=== PATIENT | male | born 1960 | race Caucasian/White ===

== ENCOUNTER 2022-07-25 10:05 | Emergency (ER) | payer SELFPAY ==
[2022-07-25 10:07] VITALS: BP 199/94; PULSE 66; RESP 18; TEMP 36.6; O2SAT 99
--- NOTE | 2022-07-25 10:35 | ED.GENADULT ---
HPI - General Adult General Chief complaint: Unspecified Stated complaint: Employer requesting drug screen Time Seen by Provider: 07/25/22 10:09 History of Present Illness HPI narrative: Patient is a 62-year-old male who presents to the ER with his employer for a drug test. They have paperwork for a DOT drug screen. Apparently there was reasonable suspicion for the patient to have a test performed and so they brought him here because they did not feel there is another open facility. Patient is alert and oriented x3. He has no complaints. He reports he is feeling agitated due to the situation. Related Data Allergies Allergy/AdvReac Type Severity Reaction Status Date / Time Penicillins Allergy Mild Rash Verified 07/25/22 10:05 Review of Systems Review of Systems: All systems reviewed & are unremarkable except as noted in HPI and below Constitutional: Constitutional: Denies chills and Denies fever(s) Cardiovascular: Cardiovascular: Denies chest pain and Denies radiating jaw, neck or arm pain Neurologic: Denies confusion, Denies headache(s), Denies focal weakness and Denies numbness PMFSH Past Medical History Medical History (Updated 07/25/22 @ 10:40 by Zach Núñez MD) Sleep apnea Surgical History Surgical History (Updated 07/25/22 @ 10:40 by Zach Núñez MD) H/O rotator cuff surgery Exam Narrative: GENERAL: Well-appearing, well-nourished, and in no acute distress. HEAD: Normocephalic, atraumatic. EYES: PERRL and EOMI. CHEST: Clear to auscultation. No respiratory distress. HEART: Regular rate and rhythm. Normal peripheral pulses. EXTREMITIES: Up and ambulatory without difficulty. Normal strength. No upper extremity drift. NEURO: Alert and oriented x3. PSYCH: Normal mood and affect. Course Course Emergency Course: Blood pressure initially significantly elevated, recheck 152/91 mmHg. I have directed the employer to a local [facility] facility for which they have the order paperwork for. I recommended the test be performed there instead of here given the fact they have chain of custody paperwork that they need filled out and I do not know that we can adequately meet that standard. Vital Signs Vital signs: Vital Signs Temperature 97.9 F 07/25/22 10:07 Pulse Rate 66 07/25/22 10:07 Respiratory Rate 18 07/25/22 10:07 Blood Pressure 199/94 H 07/25/22 10:07 Pulse Oximetry 99 07/25/22 10:07 Temperature 97.9 F 07/25/22 10:07 Pulse Rate 66 07/25/22 10:07 Respiratory Rate 18 07/25/22 10:07 Blood Pressure 199/94 H 07/25/22 10:07 Pulse Oximetry 99 07/25/22 10:07 Medical Decision Making Vital Signs Vital Signs: Vital Signs Temperature 97.9 F 07/25/22 10:07 Pulse Rate 66 07/25/22 10:07 Respiratory Rate 18 07/25/22 10:07 Blood Pressure 199/94 H 07/25/22 10:07 Pulse Oximetry 99 07/25/22 10:07 Temperature 97.9 F 07/25/22 10:07 Pulse Rate 66 07/25/22 10:07 Respiratory Rate 18 07/25/22 10:07 Blood Pressure 199/94 H 07/25/22 10:07 Pulse Oximetry 99 07/25/22 10:07 Discharge Plan Discharge Clinical Impression: Normal physical examination, Elevated blood pressure reading Patient Disposition: Home, Self-Care Condition: Stable Additional Instructions: Please go to the [facility] located at [address] [place] [address] to have your federal lab work performed. Return to the ER if you have any chest pain or shortness of breath, you cannot keep down food or water, you lose consciousness, you have additional concerns. Monitor your blood pressure at home. Follow-up/Referrals: Donna,Ronald Geiger Jr., MD [Primary Care Provider] - 1 Week
== END 2022-07-25 10:45 | disposition home or self-care (01) ==
PROVIDERS: Emergency Provider Emergency Medicine; PCP Internal Medicine
DX: R03.0 Elevated blood-pressure reading, without diagnosis of hypertension (principal); G47.30 Sleep apnea, unspecified
CPT/HCPCS: 99281